=== PATIENT | male | born 2000 | race Caucasian/White ===

== ENCOUNTER → 2022-09-10 13:29 | Outpatient (BNVA) | payer BC, SELFPAY | PROVIDERS: Visit Provider Nurse Practitioner Family | DX: M25.531 Pain in right wrist (principal) | CPT/HCPCS: 73110 ==

== ENCOUNTER 2022-11-09 14:31 | Outpatient (CLI) | payer BC, SELFPAY ==
--- NOTE | 2022-11-09 14:44 | XR_ITS ---
WS: [id number] Right wrist, 3 views, 11/09/2022 Clinical Data: right wrist pain Comparison: Right wrist, 09/10/2022 Findings: There is a fracture of the midshaft of the right scaphoid. The other carpal bones are intact. The dis dimas right radius and ulna are normal. Impression: Midshaft fracture of the right scaphoid bone.
== END 2022-11-09 14:32 | disposition home or self-care (01) ==
LOC: RAD 14:35
PROVIDERS: PCP Nurse Practitioner Family; Visit Provider Nurse Practitioner Family
DX: S62.021A Displaced fracture of middle third of navicular [scaphoid] bone of right wrist, initial encounter for closed fracture (principal); X58.XXXA Exposure to other specified factors, initial encounter; M25.531 Pain in right wrist
CPT/HCPCS: 73110